=== PATIENT | male | born 1965 | race Two or more races ===

== ENCOUNTER 2019-06-18 09:42 | Inpatient (IN) | payer BC ==
[~2019-06-18] VITALS: Ht 180.3 cm; Wt 88.5 kg
[2019-06-18] MEDS ORDERED: LISI10TA5 PO (09:50)
--- NOTE | 2019-06-18 09:50 | NUR ---
Admit a 53 yo in rm 2B, ambulatory accompanied by his with a c/o abdomenal pain. Orientedx3. Denies any N/V, diarrhea. Also c/o poor appetite.
--- NOTE | 2019-06-18 09:55 | NUR ---
Seen and examined by Dr Crook with new orders.
[2019-06-18 10:23] LABS: BASOPHILS % (AUTO) 0.2 % (0.0-2.0); HEMATOCRIT 46.3 % (36.7-47.1); HEMOGLOBIN 15.8 g/dL (12.5-16.3); LYMPHOCYTES # (AUTO) 0.4 K/uL (20.0-40.0); LYMPHOCYTES % (AUTO) 7.9 % (20.5-51.5); MEAN CORPUSCULAR HEMOGLOBIN 30.6 uug (23.8-33.4); MEAN CORPUSCULAR HGB CONC 34 g/dL (32.5-36.3); MEAN CORPUSCULAR VOLUME 89.9 fL (73.0-96.2); MONOCYTES # (AUTO) 0.1 K/uL (2.0-10.0); MONOCYTES % (AUTO) 2.7 % (0.0-11.0); NEUTROPHILS # (AUTO) 4.5 K/uL (1.8-8.9); NEUTROPHILS % (AUTO) 89.2 % (38.5-71.5); PLATELET COUNT (AUTO) 131 K/uL (152-348); RED BLOOD CELL COUNT(AUTO) 5.15 MIL/uL (4.06-5.63)
[2019-06-18 10:24] LABS: *BILIRUBIN,URIN NEGATIVE (NEGATIVE); *COLOR,URINE YELLOW (YELLOW); *KETONES,URINE NEGATIVE (NEGATIVE); *UROBILINOGEN,URINE 0.2 E.U./dl (NORMAL); CREATININE 1.3 mg/dL (0.6-1.3); LEUKOCYTE ESTERASE ,URINE NEGATIVE (NEGATIVE); NITRITE, URINE NEGATIVE (NEGATIVE); POTASSIUM 3.6 mmol/L (3.5-5.1)
[2019-06-18 10:30] LABS: BILIRUBIN,DIRECT 0.1 mg/dL (0.0-0.2); BILIRUBIN,TOTAL 0.5 mg/dL (0.2-1.0); TOTAL PROTEIN, SERUM 7.8 g/dL (6.4-8.2)
[2019-06-18] MEDS ORDERED: SWABABLE VALVE TRANSFER SET EA MC ONE (10:41)
[2019-06-18] MEDS ORDERED: IOHEXOL 300MG/ML 100 ML INFUS..BTL ONE (10:41)
[2019-06-18] MEDS ORDERED: IV NORMAL SALINE 250 ML IV ONE (10:41)
[2019-06-18 10:52] LABS: *BLOOD, URINE TRACE (NEGATIVE)
[2019-06-18 10:55] LABS: *CLARITY,URINE HAZY (CLEAR); UGLUCOSE 2+ (NEGATIVE)
[2019-06-18] MEDS ORDERED: TAMS-3 PO (10:57)
[2019-06-18] MEDS ORDERED: ATOR10TA PO (10:57)
[2019-06-18 10:59] LABS: BACTERIA,URINE NONE SEEN /HPF (NONE SEEN); RBC,URINE 0-3 /HPF (0-3); SQUAMOUS EPITHELIAL CELL,UR FEW /HPF (NONE SEEN); WBC,URINE 0-3 /HPF (0-3)
--- NOTE | 2019-06-18 11:00 | NUR ---
IV access line started on the right upper arm g20. consent signed for CT abd with contrast. Pt down to CT via gurney.
[2019-06-18] MEDS ORDERED: LEVOFLOXACIN 500 MG/D5W 100 ML ONE (11:42)
[2019-06-18] MEDS ORDERED: METRONIDAZOLE 500 MG/NS 100ML 100 ML IV ONE (11:43)
[2019-06-18] MEDS ORDERED: IV NORMAL SALINE 1000 ML BAG IV ONE (11:45)
[2019-06-18] MEDS ORDERED: METRONIDAZOLE 500 MG/NS 100 ML PIGGYBACK IV ONE (11:45)
[2019-06-18] MEDS ORDERED: LEVOFLOXACIN 500 MG/D5W 100ML PIGGYBACK IV ONE (11:45)
[2019-06-18] MEDS ORDERED: MORPHINE SULFATE 4 MG/1 ML DISP.SYRIN ONE (11:58)
[2019-06-18] MEDS ORDERED: MORPHINE SULFATE 2 MG/1 ML DISP.SYRIN ONE (11:59)
[2019-06-18] MEDS ORDERED: MORPHINE SULFATE 4 MG/1 ML DISP.SYRIN IV ONE (12:00)
--- NOTE | 2019-06-18 12:04 | NUR ---
Pt c/o abdomenal pain level 8-10. Medicated with Morphine 6mg slow IVP as ordered.
--- NOTE | 2019-06-18 12:30 | NUR ---
Pt is being admitted in [facility]. Dr Deluna is notified.
--- NOTE | 2019-06-18 13:00 | NUR ---
Report given to Corina. Pt is admitted to Rm 321. Pt and is aware.
--- NOTE | 2019-06-18 13:20 | NUR ---
Pt is transferred to 321 via [facility] accompanied by his . Condition is guarded.
[2019-06-18 13:24] VITALS: BP 143/85
--- NOTE | 2019-06-18 13:30 | NUR ---
RECEIVED PATIENT FROM ER. PATIENT ALERT AND ORIENTED X4, IV IN R AC RUNNING A BOLUS OF NS. PATIENT DENIES PAIN AND DISCOMFORT AT THIS MOMENT. NO ACUTE DISTRESS NOTED. PATIENT VITAL SIGNS WITHIN NORMAL LIMITS. AT BEDSIDE. SIDE RAILS UP X2, BED IN LOWEST POSITION, CALL LIGHT WITHIN REACH. WILL CONTINUE TO MONITOR.
[2019-06-18] MEDS ORDERED: HYDROCODONE/APAP 5-325MG TABLET PO PRN (13:45)
[2019-06-18] MEDS ORDERED: ONDANSETRON 4 MG/2 ML VIAL IV PRN (13:45)
[2019-06-18] MEDS ORDERED: Z GUARD REMEDY PASTE 57 GM TUBE TOP PRN (13:45)
[2019-06-18] MEDS ORDERED: MAGNESIUM HYDROXIDE 30 ML LIQUID UDC PO PRN (13:45)
[2019-06-18] MEDS ORDERED: ZOLPIDEM 5 MG TABLET PO PRN (13:45)
[2019-06-18] MEDS: ACETAMINOPHEN 325 MG TABLET PO PRN ×2 (13:53→20:27)
[2019-06-18 16:00] VITALS: BP 115/75
[2019-06-18] MEDS: IV NS 1000 ML 1,000 ML IV PRN (16:23)
--- NOTE | 2019-06-18 18:19 | NUR ---
PATIENT RESTED THROUGHOUT SHIFT. NO COMPLAINTS OF PAIN. PATIENT HAD A LOW GRADE FEVER AND TYLENOL ADMINISTERED. PATIENT ON IV HYDRATION. NO ACUTE DISTRESS NOTED. SAFETY MEASURES PROVIDED. WILL ENDORSE TO ONCOMING NURSE.
--- NOTE | 2019-06-18 19:45 | NUR ---
PATIENT ALERT ORIENTED NO SOB NO CHEST PAIN, PATIENT HAS NO COMPLAIN OF PAIN AT THIS TIME. CONT TO MONITOR. PATIENT ON CLEAR LIQUID DIET TOLERATE.
[2019-06-18 20:03] VITALS: BP 135/88
[2019-06-18] MEDS: METRONIDAZOLE 500 MG/NS 100ML 500 MG in PREMIXED 1 EACH IV SCH (21:31)
[2019-06-19] MEDS: IV NS 1000 ML 1,000 ML IV PRN ×2 (01:00→10:19)
[2019-06-19 04:05] VITALS: BP 131/81
[2019-06-19] MEDS: METRONIDAZOLE 500 MG/NS 100ML 500 MG in PREMIXED 1 EACH IV SCH (05:22)
[2019-06-19 06:23] LABS: BASOPHILS % (AUTO) 0.4 % (0.0-2.0); EOSINOPHILS % (AUTO) 0.2 % (0.0-7.0); HEMATOCRIT 41.1 % (36.7-47.1); LYMPHOCYTES % (AUTO) 22.2 % (20.5-51.5); MEAN CORPUSCULAR HEMOGLOBIN 30.5 uug (23.8-33.4); MEAN CORPUSCULAR HGB CONC 34 g/dL (32.5-36.3); MEAN CORPUSCULAR VOLUME 89.7 fL (73.0-96.2); MONOCYTES # (AUTO) 0.3 K/uL (2.0-10.0); MONOCYTES % (AUTO) 6.7 % (0.0-11.0); NEUTROPHILS # (AUTO) 3.1 K/uL (1.8-8.9); NEUTROPHILS % (AUTO) 70.5 % (38.5-71.5); PLATELET COUNT (AUTO) 112 K/uL (152-348); RED BLOOD CELL COUNT(AUTO) 4.58 MIL/uL (4.06-5.63); WHITE BLOOD COUNT (AUTO) 4.4 K/uL (3.6-10.2)
[2019-06-19 06:44] LABS: BILIRUBIN,TOTAL 0.5 mg/dL (0.2-1.0); CREATININE 1.1 mg/dL (0.6-1.3); MAGNESIUM 1.8 mg/dL (1.8-2.4); PHOSPHOROUS 2.7 mg/dL (2.5-4.9); POTASSIUM 3.7 mmol/L (3.5-5.1); TOTAL PROTEIN, SERUM 6.5 g/dL (6.4-8.2)
--- NOTE | 2019-06-19 07:30 | NUR ---
Patient calm and comfortable resting in bed ; patient will continue to be monitored.
[2019-06-19] MEDS: TAMSULOSIN HCL 0.4 MG CAP.SR.24H PO SCH (08:25)
[2019-06-19] MEDS: LISINOPRIL 10 MG TABLET PO SCH (08:26)
[2019-06-19] MEDS: ACETAMINOPHEN 325 MG TABLET PO PRN (10:19)
[2019-06-19 10:58] VITALS: BP 146/95
[2019-06-19] MEDS ORDERED: LEVOFLOXACIN 500 MG/D5W 500 MG in PREMIXED 1 EACH IV SCH (12:00)
[2019-06-19 15:30] VITALS: BP 137/94
[2019-06-19] MEDS: METRONIDAZOLE 500 MG TABLET PO SCH ×2 (17:03→21:47)
[2019-06-19 20:00] VITALS: BP 143/91
--- NOTE | 2019-06-19 20:01 | NUR ---
Patient calm and comfortable through out shift ; GI consult came placed orders for clear liquid diet to be advanced to diabetic diet with no diary. Md placed orders for iv fluids to be D/C and to change Levaquin and Flagyl to be PO; patient requesting no IV line. Report given to oncoming nurse.
[2019-06-19] MEDS: ATORVASTATIN 10 MG TABLET PO SCH ×2 (21:00→21:47)
[2019-06-19 22:25] LABS: *OCCULT BLOOD STOOL NEGATIVE (NEGATIVE)
[2019-06-20 04:00] VITALS: BP 133/85
[2019-06-20] MEDS: METRONIDAZOLE 500 MG TABLET PO SCH (06:02)
--- NOTE | 2019-06-20 07:30 | NUR ---
Patient calm and comfortable resting in bed with no signs of distress.
[2019-06-20] MEDS: TAMSULOSIN HCL 0.4 MG CAP.SR.24H PO SCH (09:23)
[2019-06-20] MEDS: LISINOPRIL 10 MG TABLET PO SCH (09:23)
[2019-06-20] MEDS ORDERED: METR-147 PO (09:25)
[2019-06-20] MEDS ORDERED: LEVO500T2 PO (09:25)
[2019-06-20 11:18] VITALS: BP 146/94
--- NOTE | 2019-06-20 11:45 | NUR ---
Patient anox4; discharged home in stable condition with stable vital signs; Patient educated on diagnosis and follow up with primary care physician. GI MD gave orders for patient to follow up with out patient GI Specialist. Patient verbalized understanding ; patient expressed understanding of diagnosis and that he would schedule a follow up with outpatient GI Specialist. Patient left via private car.
[2019-06-20] MEDS ORDERED: LEVOFLOXACIN 500 MG TABLET PO SCH (12:00)
[2019-06-21] MEDS ORDERED: PANTOPRAZOLE SODIUM 40 MG TABLET.DR PO SCH (07:00)
== END 2019-06-20 11:40 | disposition home or self-care (01) | DRG 872 ==
LOC: ER 09:45 → MEDSURG3 13:13
PROVIDERS: ADMIT Internal Medicine; ATTEND Internal Medicine
DX: A41.9 Sepsis, unspecified organism (principal); A04.9 Bacterial intestinal infection, unspecified; E87.2 Acidosis; E78.5 Hyperlipidemia, unspecified; D69.6 Thrombocytopenia, unspecified; K21.9 Gastro-esophageal reflux disease without esophagitis; N40.0 Benign prostatic hyperplasia without lower urinary tract symptoms; E11.9 Type 2 diabetes mellitus without complications; Z79.899 Other long term (current) drug therapy; K76.0 Fatty (change of) liver, not elsewhere classified; I10 Essential (primary) hypertension; E27.8 Other specified disorders of adrenal gland
CPT/HCPCS: 36415; 83520; 83605; 83690; 83735; 84100; 85025; 85651; 86256; 86625; 87040; 87046; 89055; 93005; A4663; G0378; J1956; J2270; J3490; J7030; J7050; Q9967